=== PATIENT | female | born 1955 | race Caucasian/White ===

== ENCOUNTER 2017-07-15 12:30 | Emergency (ER) | payer BC ==
[2017-07-15 13:22] LABS: #Basophils 0.1 thou/uL (0.0-0.2); #Eosinphils 0.1 thou/uL (0.0-0.7); #Lymphocytes 3.5 thou/uL (1.20-3.40); #Monocytes 0.8 thou/uL (0.11-0.59); #Neutrophils 15.2 thou/uL (1.40-6.50); %Basophils 0.3 % (0.0-1.0); %Eosinophils 0.5 % (0.0-10.0); %Lymphocytes 17.9 % (21.0-51.0); %Monocytes 4.3 % (0.0-10.0); Mean Platelet Volume 6.5 fL (7.4-10.4); White Blood Cell (WBC) Count 19.7 thou/uL (4.8-10.8)
--- NOTE | 2017-07-15 13:22 | RAD ---
CHEST ONE VIEW: History: Hypotension. Chest pain. Comparison: 05-25-09 FINDINGS: Cardiac silhouette is magnified by projection. Pulmonary vasculature is unremarkable. Mediastinum is midline. There is no confluent airspace consolidation or evidence of pneumothorax. case monitor le ads overlie the chest. IMPRESSION: No active cardiopulmonary abnormalities are demonstrated. POS: [facility] [place]
[2017-07-15 13:34] LABS: ALT (SGPT) 39 U/L (8-55); AST (SGOT) 13 U/L (5-34); Alkaline Phosphatase 60 U/L (40-150); Anion Gap 14 mmol/L (10-20); BUN (Urea Nitrogen) 26 mg/dL (9.8-20.1); CK (CPK) 42 U/L (29-168); Calc. Creatinine Clearance 0 mL/min (70-130); Calcium 9.6 mg/dL (7.8-10.44); Carbon Dioxide 26 mmol/L (23-31); Chloride 101 mmol/L (98-107); Estimated GFR-MDRD 44; Globulin 2.7 g/dL (2.4-3.5)
[2017-07-15 13:39] LABS: Troponin I Less than 0.010 ng/mL (< 0.028)
== END 2017-07-15 13:49 | disposition home or self-care (01) ==
LOC: ERS 12:30
DX: K64.4 Residual hemorrhoidal skin tags (principal); K59.00 Constipation, unspecified; I10 Essential (primary) hypertension; E11.9 Type 2 diabetes mellitus without complications; J44.9 Chronic obstructive pulmonary disease, unspecified; Z79.84 Long term (current) use of oral hypoglycemic drugs; Z79.899 Other long term (current) drug therapy; Z87.891 Personal history of nicotine dependence
CPT/HCPCS: 36415; 71010; 80053; 82550; 82553; 84484; 85025; 93005; 94760

== ENCOUNTER 2017-08-21 08:41 | Outpatient (CLI) | payer BC ==
--- NOTE | 2017-08-28 10:56 | PFT ---
PATIENT HISTORY: HEIGHT: 62 IN WEIGHT: 215 SMOKER: YES HOW LON YEARS PACKS PER DAY 1 PRODUCTIVE COUGH: NO LUNG DISEASE: PHYSICIAN INTERPRETATION FINAL REPORT:Medical Records Clerk comments patient has good effort cooperation PFT data: FVC 2.3 (72%), FEV1 1.54 (75%), FEV1/FVC 0.75. Total expiratory time 6.93 seconds. TLC 3.82 (85%), RV 1.65 (97%). Diffusion 16.39 (90%) . The FVC and the FEV1 have a symmetric reduction, suggestive of a restrictive profile. That being said, the total lung capacity falls at the lower limits of normal. Residual volume is normal. Diffusion capacity is normal. There is a minimal reduction to the FRC IMPRESSION: Overall, these pulmonary function studies are consistent with mild restrictive airflow limitation with no significant improvement following bronchodilator and normal gas exchange. Body habitus may be contributing to these findings. No priors for comparison. Medical Records Clerk: CHELSEA Process Cheese Cooker: CHELSEA AVALOS
== END 2017-08-21 08:42 | disposition home or self-care (01) ==
LOC: CP 08:41
PROVIDERS: ATTEND Internal Medicine
DX: J44.9 Chronic obstructive pulmonary disease, unspecified (principal)
CPT/HCPCS: 94060; 94727; 94729

== ENCOUNTER 2017-09-04 19:00 | Outpatient (CLI) | payer BC | END 2017-09-04 19:01 | disposition home or self-care (01) | LOC: SLEEPLAB 19:00 | PROVIDERS: ATTEND Internal Medicine | DX: G47.33 Obstructive sleep apnea (adult) (pediatric) (principal); K21.9 Gastro-esophageal reflux disease without esophagitis; E11.9 Type 2 diabetes mellitus without complications; I10 Essential (primary) hypertension; J44.9 Chronic obstructive pulmonary disease, unspecified; E66.9 Obesity, unspecified; R35.1 Nocturia; R25.8 Other abnormal involuntary movements | CPT/HCPCS: 95806 ==

== ENCOUNTER 2018-05-18 21:45 | Emergency (ER) | payer BC ==
--- NOTE | 2018-05-18 22:55 | RAD ---
CHEST TWO VIEWS: HISTORY: Cough. COMPARISON: 07/15/2017 FINDINGS: Normal cardiac silhouette. Pulmonary vessels and hilum are normal. Costophrenic angles are clear. No masses or consolidation. No pneumothorax or osseous abnormalities. IMPRESSION: 1. Atherosclerosis. 2. No acute cardiopulmonary process. POS: [facility]
== END 2018-05-18 23:14 | disposition home or self-care (01) ==
LOC: ERS 21:45
DX: J30.2 Other seasonal allergic rhinitis (principal); J44.9 Chronic obstructive pulmonary disease, unspecified; E11.9 Type 2 diabetes mellitus without complications; I10 Essential (primary) hypertension; Z87.891 Personal history of nicotine dependence
CPT/HCPCS: 71046; 87804